=== PATIENT | male | born 1950 | race Caucasian/White ===

== ENCOUNTER 2019-02-21 19:58 | Inpatient (IN) | payer MEDICARE, MEDICAID ==
[~2019-02-21] VITALS: Ht 177.8 cm; Wt 89.4 kg
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
[2019-02-21 21:38] LABS: BASOPHILS # (AUTO) 0.1 /CMM (0.0-0.2); BASOPHILS % (AUTO) 0.4 % (0.0-2.0); EOSINOPHILS % (AUTO) 0.4 % (0.0-6.0); HEMATOCRIT 43 % (39-51); HEMOGLOBIN 14.5 g/dL (13.5-17.5); LYMPHOCYTES # (AUTO) 1.3 /CMM (0.8-4.8); LYMPHOCYTES % (AUTO) 9.1 % (20.0-44.0); MEAN CORPUSCULAR HGB CONC 34 g/dl (31.0-36.0); MEAN CORPUSCULAR VOLUME 86 fL (80-96); MONOCYTES # (AUTO) 0.9 /CMM (0.1-1.30); MONOCYTES % (AUTO) 6.4 % (2.0-12.0); NEUTROPHILS % (AUTO) 83.7 % (43.0-81.0); PLATELET COUNT (AUTO) 249 /CMM (150-450); RED BLOOD CELL COUNT(AUTO) 4.93 MIL/uL (4.5-6.0); WHITE BLOOD COUNT (AUTO) 14.4 K/uL (4.3-11.0)
[2019-02-21 21:46] LABS: CALCIUM, SERUM 9.2 mg/dL (8.5-10.1); CARBON DIOXIDE 22 mmol/L (21-32); CHLORIDE 108 mmol/L (98-107); CREATININE 1.3 mg/dL (0.6-1.3); GLUCOSE 151 mg/dL (74-106); POTASSIUM 3.3 mmol/L (3.5-5.1); SODIUM SERUM 143 mmol/L (136-145); UREA NITROGEN, BLOOD 17 mg/dL (7-18)
--- NOTE | 2019-02-21 21:50 | NUR ---
CALLED NURSING SUP FOR BLU BED.
[2019-02-21 21:52] LABS: ALANINE AMINOTRANSFERASE 26 U/L (12-78); ALKALINE PHOSPHATASE 120 U/L (46-116); ASPARTATE AMINOTRANSFERASE 26 U/L (15-37); BILIRUBIN,DIRECT 0.1 mg/dL (0.0-0.2); BILIRUBIN,TOTAL 0.5 mg/dL (0.2-1.0); LIPASE 159 U/L (73-393); TOTAL PROTEIN, SERUM 7.9 g/dL (6.4-8.2)
--- NOTE | 2019-02-21 21:54 | NUR ---
phleb sent by [employer] at bedside for blood draw
[2019-02-21] MEDS ORDERED: LEVETIRACETAM (500MG) 500 MG/5 ML VIAL IV ONE (21:59)
[2019-02-21] MEDS ORDERED: LEVETIRACETAM (500MG) 1,000 MG in IV NS 0.9% 100 ML IV SCH (22:00)
--- NOTE | 2019-02-21 22:15 | NUR ---
[employer] WARRANT IN PLACE FOR THIS PATIENT. [phone] FOR FOLLOW UP.
--- NOTE | 2019-02-21 22:30 | NUR ---
NURSING SUP GAVE 120-2.
--- NOTE | 2019-02-21 22:31 | NUR ---
CORRECTION 106
[2019-02-21] MEDS ORDERED: LORAZEPAM INJ 2 MG/ML VIAL IV PRN (23:30)
[2019-02-21] MEDS ORDERED: ACETAMINOPHEN 325 MG TABLET PO PRN (23:30)
[2019-02-21] MEDS ORDERED: MAGNESIUM HYDROXIDE 30 ML UDC PO PRN (23:30)
[2019-02-21] MEDS ORDERED: ONDANSETRON HCL/PF 4 MG/2 ML VIAL IVP PRN (23:30)
[2019-02-21] MEDS ORDERED: MAG HYDROX/AL HYDROX/SIMETH 30 ML UDC PO PRN (23:30)
[2019-02-21] MEDS ORDERED: Z GUARD REMEDY 2 OZ OINT TP PRN (23:30)
--- NOTE | 2019-02-21 23:51 | NUR ---
report given to sanjeev yao for ritchie, pt transported to 1st floor
[2019-02-22] VITALS: BP 150/99
[2019-02-22] MEDS: CEFTRIAXONE 1 G in IV D5W 50 ML IV SCH ×2
[2019-02-22] MEDS: IV NS 0.9% 1,000 ML IV PRN (01:00)
--- NOTE | 2019-02-22 01:58 | NUR ---
[address] SCAN VIA BED ON ACLS MONITOR. AAO X 4. NO CHANGES IN NEURO STATUS NOTED.
--- NOTE | 2019-02-22 02:08 | NUR ---
[address] SCAN.
[2019-02-22 04:00] VITALS: BP 155/94
[2019-02-22] MEDS ORDERED: CEFTRIAXONE 1 G VIAL ONE (04:34)
[2019-02-22 06:40] LABS: BASOPHILS % (AUTO) 0.3 % (0.0-2.0); EOSINOPHILS % (AUTO) 0.4 % (0.0-6.0); HEMATOCRIT 38 % (39-51); HEMOGLOBIN 12.9 g/dL (13.5-17.5); LYMPHOCYTES # (AUTO) 1.4 /CMM (0.8-4.8); LYMPHOCYTES % (AUTO) 16.8 % (20.0-44.0); MEAN CORPUSCULAR HGB CONC 34 g/dl (31.0-36.0); MEAN CORPUSCULAR VOLUME 85 fL (80-96); MONOCYTES # (AUTO) 0.9 /CMM (0.1-1.30); MONOCYTES % (AUTO) 10.2 % (2.0-12.0); NEUTROPHILS % (AUTO) 72.3 % (43.0-81.0); PLATELET COUNT (AUTO) 215 /CMM (150-450); RED BLOOD CELL COUNT(AUTO) 4.47 MIL/uL (4.5-6.0); WHITE BLOOD COUNT (AUTO) 8.4 K/uL (4.3-11.0)
[2019-02-22 06:43] LABS: CALCIUM, SERUM 8.6 mg/dL (8.5-10.1); POTASSIUM 3.7 mmol/L (3.5-5.1)
[2019-02-22 06:46] LABS: MAGNESIUM 2.1 mg/dL (1.8-2.4); PHOSPHORUS 2.4 mg/dL (2.5-4.9)
[2019-02-22 06:54] LABS: THYROID STIMULATING HORMONE 4.263 uIU/mL (0.358-3.74)
--- NOTE | 2019-02-22 07:52 | NUR ---
RN NOTES RECEIVED PATIENT FROM ER VIA STRETCHER ACCOMPANIED BY 2 STAFF IN NO APPARENT DISTRESS, BREATHING EVEN AND UNLABORED. ROOM AIR TOLERATING WELL. ALERT AND ORIENTED CZECH SPEAKING. VITAL SIGNS WNL. NO COMPLAINT OF PAIN OR DISCOMFORT. SKIN ASSESSMENT DONE. NEEDS ATTENDED. KEPT CLEAN AND DRY. ENDORSED TO NEXT SHIFT FOR CONTINUITY OF CARE.
[2019-02-22 08:00] VITALS: BP 183/63
[2019-02-22] MEDS ORDERED: K PHOS NEUTRAL 250 MG TABLET PO ONE (08:00)
--- NOTE | 2019-02-22 08:00 | NUR ---
TELE1/RN AM SHIFT INITIAL NOTES RECEIVED PT ASLEEP IN BED, EASILY AROUSED, PT A/OX 4 DENIES PAIN AT THIS TIME. NO ACUTE CHANGE OF CONDITION NOTED. ON ROOM AIR, RESPIRATIONS EVEN & UNLABORED, SATURATING @ 100%, LUNG SOUNDS CLEAR. ON TELE WITH SINUS RHYTHM, HR 91. WITH ON GOING IV INFUSION OF NS @ 50CC/HR, IV SITE PATENT WITH NO S/S OF INFECTION. PT IS COMFORTABLE, SCHEDULED AM MEDS TO BE GIVEN. CL WITHIN REACHED AND SAFETY MAINTAINED. ON GOING MONITORING.
[2019-02-22] MEDS ORDERED: ASPI-605 PO (08:20)
[2019-02-22] MEDS ORDERED: VALS320T16 PO (08:20)
[2019-02-22] MEDS: PANTOPRAZOLE 40 MG TABLET.DR PO SCH (09:00)
[2019-02-22] MEDS: THIAMINE HCL 100 MG TABLET PO SCH (09:00)
[2019-02-22] MEDS: FOLIC ACID 1 MG TABLET PO SCH (09:00)
[2019-02-22] MEDS: MULTIVITAMINS,THERAGRAN 1 UDTAB TABLET PO SCH (09:00)
[2019-02-22] MEDS: LEVETIRACETAM (500MG) 500 MG in IV NS 0.9% 100 ML IV SCH ×2 (09:01→20:53)
[2019-02-22] MEDS ORDERED: CLONIDINE HCL 0.1 MG TABLET PO PRN (10:00)
[2019-02-22] MEDS ORDERED: CLONIDINE HCL 0.1 MG TABLET PO ONE (11:00)
[2019-02-22 12:00] VITALS: BP 168/99
[2019-02-22 16:00] VITALS: BP 147/86
--- NOTE | 2019-02-22 16:00 | NUR ---
WAFER PRODUCTION LEAD WORKER NOTES RECEIVED PATIENT FROM [facility]. PATIENT IN BED NO SOB OR DISCOMFORT NOTED AT THIS TIME. CALL LIGHT WITHIN REACH BED AT THE LOWEST POSITION.
--- NOTE | 2019-02-22 16:13 | NUR ---
TELE1/HYPERION ANALYST OF CARE PT IN STABLE CONDITION. REPORT GIVEN TO NURSE REMY, PT ENDORSED TO CONTINUE CARE.
--- NOTE | 2019-02-22 19:00 | NUR ---
SECTION PLOTTER OPERATOR NOTES PATIENT IS A/OX 4 , ALL NEEDS ATTENDED. NO SOB OR DISCOMFORT AT THIS TIME. IV PATENT AND FLUSHED WITH NS, BED AT THE LOWEST POSITION AND LOCKED, CALL LIGHT WITHIN REACH. ENDORSED TO QUALITY CONTROL SYSTEMS MANAGER NURSE FOR MICHELLE.
--- NOTE | 2019-02-22 19:45 | NUR ---
RN NOTES, RECEIVED PATIENT IN BED , AWAKE A/OX 4, ABLE TO VERBALIZED NEEDS AND CONCERNS, C/O GENERALIZED PAIN AT THIS TIME, WILL ADMINISTER PAIN MEDICATION ORDERED, BREATHING EVEN AND UNLABORED, ON ROOM AIR, NO SOB/ACUTE DISTRESS NOTED, SINUS RHYTHM ON TELE WITH HR 80S AT THIS TIME, IVF NS @ 50CC/HR INFUSING WELL AND PATIENT TOLERATED WELL, NO S/S OF INFILTRATION OR ABNORMALITY AT SITE, BED LOCKED AND LOW POSITION, CALL LIGHT WITHIN REACHED, WILL CONTINUE TO MONITOR CLOSELY.
[2019-02-22] MEDS: HYDROCODONE/APAP 5/325MG 1 EACH TABLET PO PRN (19:46)
[2019-02-22 20:00] VITALS: BP_SYST 147; BP_SYST 157; BP_DIAS 82; BP_DIAS 86
[2019-02-23] VITALS: BP 136/82
[2019-02-23] MEDS: CEFTRIAXONE 1 G in IV D5W 50 ML IV SCH (00:01)
[2019-02-23] MEDS: HYDROCODONE/APAP 5/325MG 1 EACH TABLET PO PRN (00:07)
[2019-02-23] MEDS: IV NS 0.9% 1,000 ML IV PRN (03:54)
[2019-02-23 04:00] VITALS: BP_SYST 139; BP_SYST 147; BP_DIAS 85; BP_DIAS 88
[2019-02-23 06:14] LABS: BASOPHILS % (AUTO) 0.3 % (0.0-2.0); EOSINOPHILS % (AUTO) 2.2 % (0.0-6.0); HEMATOCRIT 36 % (39-51); HEMOGLOBIN 12.5 g/dL (13.5-17.5); LYMPHOCYTES # (AUTO) 1.5 /CMM (0.8-4.8); LYMPHOCYTES % (AUTO) 25.6 % (20.0-44.0); MEAN CORPUSCULAR HGB CONC 34 g/dl (31.0-36.0); MEAN CORPUSCULAR VOLUME 86 fL (80-96); MONOCYTES # (AUTO) 0.7 /CMM (0.1-1.30); MONOCYTES % (AUTO) 11.4 % (2.0-12.0); NEUTROPHILS # (AUTO) 3.5 /CMM (1.8-8.9); NEUTROPHILS % (AUTO) 60.5 % (43.0-81.0); PLATELET COUNT (AUTO) 192 /CMM (150-450); RED BLOOD CELL COUNT(AUTO) 4.25 MIL/uL (4.5-6.0); WHITE BLOOD COUNT (AUTO) 5.8 K/uL (4.3-11.0)
[2019-02-23 06:36] LABS: CALCIUM, SERUM 8.3 mg/dL (8.5-10.1); PHOSPHORUS 3.2 mg/dL (2.5-4.9); POTASSIUM 3.8 mmol/L (3.5-5.1)
--- NOTE | 2019-02-23 06:38 | NUR ---
RN NOTES, PATIENT AWAKE AT THIS TIME, BREATHING EVEN AND UNLABORED, ON ROOM AIR, NO SOB/ACUTE DISTRESS NOTED, CONTINUE SINUS RHYTHM ON TELE WITH HR 60-70S AT THIS TIME, IVF NS @ 50CC/HR INFUSING WELL AND PATIENT TOLERATED WELL, NO S/S OF INFILTRATION OR ABNORMALITY AT SITE, BED LOCKED AND LOW POSITION, NO SIGNIFICANT CHANGE IN CONDITION, OR NEUROLOGICAL ISSUE NOTED, CALL LIGHT WITHIN REACHED, WILL ENDORSE CONTINUITY OF CARE TO ONCOMING NURSE.
--- NOTE | 2019-02-23 07:34 | NUR ---
SLACK LINE YARDER NOTE PATIENT RESTING COMFORTABLY IN BED,NO SOB NOTED , ON RA , ON TELE MONITOR HR 72 SR , LT AC HL INTACT , ON IVF ORDERED, BED IN LOWEST AND LOCKED POSITION , WILL CONT TO MONITOR
[2019-02-23 08:00] VITALS: BP 148/84
[2019-02-23] MEDS: PANTOPRAZOLE 40 MG TABLET.DR PO SCH (08:10)
[2019-02-23] MEDS: FOLIC ACID 1 MG TABLET PO SCH (08:10)
[2019-02-23] MEDS: THIAMINE HCL 100 MG TABLET PO SCH (08:11)
[2019-02-23] MEDS: MULTIVITAMINS,THERAGRAN 1 UDTAB TABLET PO SCH (08:11)
[2019-02-23] MEDS: LEVETIRACETAM (500MG) 500 MG in IV NS 0.9% 100 ML IV SCH (09:43)
--- NOTE | 2019-02-23 10:17 | NUR ---
[employer] NOTIFIED PATIENT BEING DISCHARGE TODAY AWAITS CALL BACK.
--- NOTE | 2019-02-23 10:26 | NUR ---
JA BASURTO MADE AWARE OF SITUATION.
--- NOTE | 2019-02-23 10:53 | NUR ---
MS RN NOTE OK TO D\C BY JORGE REYES SOLE LEVELER MACHINE ,AWAITING RETURN CALL FROM [facility] AND [facility] , CHARGE NURSE NOTIFIED PER PT OK TO ORDER WALKER FOR SAFETY
--- NOTE | 2019-02-23 11:13 | NUR ---
SPOKE AGAIN WITH [employer] OFFICE [phone] C/O CARLOS ENRIQUE AND VERBALIZED WILL CALL BACK IN 20 MINUTES REGARDING DECISION IF PATIENT OK TO DISCHARGE HOME OR POLICE CUSTODY?WILL CONTINUE TO FOLLOWUP.
--- NOTE | 2019-02-23 11:33 | NUR ---
SPOKE WITH OFFICER MILLY FROM [employer] PATIENT OK TO RELEASED HOME.CM MADE AWARE .
[2019-02-23] MEDS ORDERED: THIA100T88 PO (11:39)
[2019-02-23] MEDS ORDERED: MULT-24 PO (11:39)
[2019-02-23] MEDS ORDERED: CLON0.1T14 PO (11:39)
--- NOTE | 2019-02-23 13:11 | NUR ---
MS RN NOTE D\C INSTRUCTION GIVEN ,BELONGING SIGNED , TELE MONITOR REMOVED , D\C INSTRUCTION GIVEN AND EXPLAINED HOW TO TAKE HOME MEDS AND NEW PX AND POSSIBLE SIDE EFFECTS , CALLED [facility] INSTRUCTED TO SOFTWARE DEPLOYMENT ENGINEER MEDS FROM PHARMACY, SPOKE WITH JOSE A PHONE NUMBER AND ADDRESS GIVEN ALSO GIVEN INSTRUCTION TO F\U WITH [facility] FOR [facility], HL REMOVED , NO BLEEDING NOTED , TAKEN TO LOBBY ON W\C WITH STABLE , REFUSED TO TAKE WALKER ,STATED AM OK, EXPLAINED TO TAKE WITH HIM STILL REFUSING ,BUS CARD GIVEN TO PATIENT WILL USE BUS TO GO HOME
[2019-02-23] MEDS ORDERED: LEVETIRACETAM (250 MG) 250 MG TABLET PO SCH (21:00)
== END 2019-02-23 13:00 | disposition home or self-care (01) | DRG 896 ==
LOC: ER 20:00 → TELE-TD 22:33 → TELE1 02-22 10:20 → MEDSG1 02-23 09:52
PROVIDERS: ADMIT Registered Nurse; ATTEND Nurse Practitioner Acute Care
DX: F10.129 Alcohol abuse with intoxication, unspecified (principal); S06.360A Traumatic hemorrhage of cerebrum, unspecified, without loss of consciousness, initial encounter; S02.2XXA Fracture of nasal bones, initial encounter for closed fracture; S50.311A Abrasion of right elbow, initial encounter; V89.2XXA Person injured in unspecified motor-vehicle accident, traffic, initial encounter; Y92.410 Unspecified street and highway as the place of occurrence of the external cause; I10 Essential (primary) hypertension; Y90.6 Blood alcohol level of 120-199 mg/100 ml; E66.9 Obesity, unspecified; E83.39 Other disorders of phosphorus metabolism; Y09 Assault by unspecified means; Z68.28 Body mass index [BMI] 28.0-28.9, adult; M25.512 Pain in left shoulder; M50.30 Other cervical disc degeneration, unspecified cervical region; R40.2142 Coma scale, eyes open, spontaneous, at arrival to emergency department; R40.2362 Coma scale, best motor response, obeys commands, at arrival to emergency department; R40.2252 Coma scale, best verbal response, oriented, at arrival to emergency department
CPT/HCPCS: 36415; 70450-TC; 70486-TC; 72125-TC; 73502; 80048-TC; 80061-TC; 80076-TC; 82140-TC; 83690-TC; 83735-TC; 84100-TC; 84439-TC; 84443-TC; 84484-TC; 85025-TC; 85730-TC; 87081-TC; 92611-TC; 97116-TC; 97530-TC; G0378; G0480; J0696; J1953; J7030; J7050; J7060

== ENCOUNTER 2020-07-16 16:46 | Inpatient (IN) | payer MEDICARE, OTHER ==
[~2020-07-16] VITALS: Ht 175.3 cm; Wt 81.6 kg
[~2020-07-16 16:46] MED LIST: ASPI-605 PO; CLON0.1T14 PO; MULT-24 PO; THIA100T88 PO; VALS320T16 PO
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
[2020-07-16] MEDS ORDERED: IV NS 0.9% 1,000 ML BAG IV ONE (17:30)
[2020-07-16] MEDS ORDERED: ONDANSETRON HCL/PF 4 MG/2 ML VIAL IVP ONE (17:30)
[2020-07-16 17:36] LABS: BASOPHILS % (AUTO) 0.2 % (0.0-2.0); EOSINOPHILS % (AUTO) 0.2 % (0.0-6.0); HEMATOCRIT 42 % (39-51); HEMOGLOBIN 14.2 g/dL (13.5-17.5); LYMPHOCYTES # (AUTO) 1.1 /CMM (0.8-4.8); MEAN CORPUSCULAR HGB CONC 34 g/dl (31.0-36.0); MEAN CORPUSCULAR VOLUME 90 fL (80-96); MONOCYTES # (AUTO) 0.7 /CMM (0.1-1.30); MONOCYTES % (AUTO) 7.2 % (2.0-12.0); NEUTROPHILS # (AUTO) 8.4 /CMM (1.8-8.9); NEUTROPHILS % (AUTO) 81.4 % (43.0-81.0); PLATELET COUNT (AUTO) 235 /CMM (150-450); RED BLOOD CELL COUNT(AUTO) 4.74 MIL/uL (4.5-6.0); WHITE BLOOD COUNT (AUTO) 10.4 K/uL (4.3-11.0)
--- NOTE | 2020-07-16 17:39 | NUR ---
MOVE SHEET SUBMITTED AND CALLED FOR TELE BED.
[2020-07-16] MEDS ORDERED: ONDANSETRON HCL/PF 4 MG/2 ML VIAL ONE (17:42)
[2020-07-16 17:50] LABS: CALCIUM, SERUM 9.1 mg/dL (8.5-10.1); CARBON DIOXIDE 21 mmol/L (21-32); CHLORIDE 107 mmol/L (98-107); CREATININE 1.6 mg/dL (0.6-1.3); GLUCOSE 94 mg/dL (74-106); POTASSIUM 4.2 mmol/L (3.5-5.1); SODIUM SERUM 139 mmol/L (136-145); UREA NITROGEN, BLOOD 35 mg/dL (7-18)
[2020-07-16 17:56] LABS: ALANINE AMINOTRANSFERASE 27 U/L (12-78); ALKALINE PHOSPHATASE 105 U/L (46-116); ASPARTATE AMINOTRANSFERASE 29 U/L (15-37); BILIRUBIN,DIRECT 0.2 mg/dL (0.0-0.2); BILIRUBIN,TOTAL 1.1 mg/dL (0.2-1.0); LIPASE 115 U/L (73-393); TOTAL PROTEIN, SERUM 8.1 g/dL (6.4-8.2)
[2020-07-16] MEDS ORDERED: IBUP-1955 PO (18:19)
[2020-07-16] MEDS ORDERED: TAMS-12 PO (18:19)
--- NOTE | 2020-07-16 18:23 | NUR ---
PAGED [facility], DR. RENÉ Han ON-CALL. AWAITING FOR CALL BACK. PRIMARY NURSE AWARE.
--- NOTE | 2020-07-16 19:10 | NUR ---
EPIC CALLED. WILL PAGE ONCOMING ORE MINER BLASTING PROVIDER, ORA PETER
--- NOTE | 2020-07-16 19:15 | NUR ---
PT ASLEEP AND NOT IN ANY APPARENT DISTRESS. EASILY AROUSABLE BY VERBAL STIMULI. PT CONNECTED TO THE MONITOR AND POX. WILL CONTINUE TO MONITOR PT
[2020-07-16] MEDS ORDERED: ZOLPIDEM TARTRATE 5 MG TABLET PO PRN (19:30)
[2020-07-16] MEDS ORDERED: IV NS 0.9% 1,000 ML IV PRN (19:30)
[2020-07-16] MEDS ORDERED: ONDANSETRON HCL/PF 4 MG/2 ML VIAL IVP PRN (19:30)
[2020-07-16] MEDS ORDERED: HYDROCODONE/APAP 5/325MG TABLET PO PRN (19:30)
[2020-07-16] MEDS ORDERED: MAG HYDROX/AL HYDROX/SIMETH 30 ML UDC PO PRN (19:30)
[2020-07-16] MEDS ORDERED: ACETAMINOPHEN 325 MG TABLET PO PRN (19:30)
[2020-07-16] MEDS ORDERED: MAGNESIUM HYDROXIDE 30 ML UDC PO PRN (19:30)
[2020-07-16] MEDS ORDERED: Z GUARD REMEDY 2 OZ OINT TP PRN (19:30)
--- NOTE | 2020-07-16 19:48 | NUR ---
CALL FROM LAB. RAPID COVID NEGATIVE.
--- NOTE | 2020-07-16 19:52 | NUR ---
TELE [phone]
--- NOTE | 2020-07-16 20:00 | NUR ---
REPORT GIVEN TO AMY MARTELL FOR MICHELLE
--- NOTE | 2020-07-16 20:30 | NUR ---
Patient does not wish to proceed with medical care recommended by Dr. Duffy. Patient given information related to possible complications, up to and including , which could occur as a result of leaving the hospital at this time. Patient verbalizes understanding of risks involved due to leaving against medical advice. Patient has signed AMA form. Pt ambulatory w/ steady gait. Pt dc w/ family
--- NOTE | 2020-07-16 20:35 | NUR ---
Pt wanted to leave. aware
[2020-07-16 20:44] VITALS: BP 120/72
[2020-07-17] MEDS ORDERED: VALSARTAN 80 MG TABLET PO SCH (09:00)
[2020-07-17] MEDS ORDERED: TAMSULOSIN 0.4 MG CAP.SR.24H PO SCH (18:00)
== END 2020-07-16 23:00 | disposition left against medical advice (07) | DRG 312 ==
LOC: ER 16:59 → TELE 19:51
PROVIDERS: ADMIT Nurse Practitioner Acute Care; ATTEND Nurse Practitioner Acute Care
DX: R55 Syncope and collapse (principal); I10 Essential (primary) hypertension; R11.10 Vomiting, unspecified; R19.7 Diarrhea, unspecified; E86.0 Dehydration; S00.03XA Contusion of scalp, initial encounter; X58.XXXA Exposure to other specified factors, initial encounter; Y93.9 Activity, unspecified; K57.30 Diverticulosis of large intestine without perforation or abscess without bleeding; Y92.009 Unspecified place in unspecified non-institutional (private) residence as the place of occurrence of the external cause; Z20.822 Contact with and (suspected) exposure to COVID-19
CPT/HCPCS: 36415; 70450-TC; 71045-TC; 80048-TC; 80076-TC; 83690-TC; 84484-TC; 85025-TC; C9803; G0378; J2405; J7030

== ENCOUNTER 2020-07-24 10:39 | Emergency (ER) | payer MEDICARE, OTHER ==
[~2020-07-24] VITALS: Ht 175.3 cm; Wt 81.6 kg
[~2020-07-24 10:39] MED LIST changes: -ASPI-605 PO; -CLON0.1T14 PO; +IBUP-1955 PO; -MULT-24 PO; +TAMS-12 PO; -THIA100T88 PO
--- NOTE | 2020-07-24 10:52 | NUR ---
DR. REMY AT BEDSIDE FOR EVAL. PATIENT PROVIDED A URINE SAMPLE AND SENT TO LAB.
[2020-07-24] MEDS ORDERED: LIDOCAINE 2% JEL UROJET 10 ML MM ONE (10:55)
[2020-07-24 10:56] LABS: BILIRUBIN,URINE Negative (NEGATIVE); COLOR,URINE YELLOW (YELLOW); LEUKOCYTE ESTERASE ,URINE Small (NEGATIVE); NITRITE, URINE Negative (NEGATIVE); PH,URINE 5.5 (5.0-8.0); PROTEIN,URINE Negative (NEGATIVE); UGLUCOSE Negative (NEGATIVE); UROBILINOGEN,URINE 0.2 EU/dL (0.2)
[2020-07-24 11:01] LABS: BACTERIA,URINE Few /HPF (None Seen); SQUAMOUS EPITHELIAL CELL,UR 0-2 /HPF (None Seen)
--- NOTE | 2020-07-24 11:06 | NUR ---
HEMPHILL CATHETER FR16 INSERTED VIA STERILE TECHNIQUE, URINE OUPUT 700CC AT THIS TIME. DR. REMY MADE AWARE
--- NOTE | 2020-07-24 11:07 | NUR ---
WOUND CARE COORDINATOR AT BEDSIDE FOR BLOOD DRAW.
[2020-07-24 11:15] LABS: BASOPHILS % (AUTO) 0.4 % (0.0-2.0); EOSINOPHILS % (AUTO) 0.8 % (0.0-6.0); HEMATOCRIT 41 % (39-51); HEMOGLOBIN 13.8 g/dL (13.5-17.5); LYMPHOCYTES # (AUTO) 1.4 /CMM (0.8-4.8); LYMPHOCYTES % (AUTO) 16.9 % (20.0-44.0); MEAN CORPUSCULAR HGB CONC 34 g/dl (31.0-36.0); MEAN CORPUSCULAR VOLUME 88 fL (80-96); MONOCYTES # (AUTO) 0.7 /CMM (0.1-1.30); MONOCYTES % (AUTO) 8.7 % (2.0-12.0); NEUTROPHILS # (AUTO) 5.9 /CMM (1.8-8.9); NEUTROPHILS % (AUTO) 73.2 % (43.0-81.0); PLATELET COUNT (AUTO) 247 /CMM (150-450); RED BLOOD CELL COUNT(AUTO) 4.59 MIL/uL (4.5-6.0)
[2020-07-24] MEDS ORDERED: CEFTRIAXONE 1GM BAG (ER ONLY) 50 ML IV ONE (11:19)
[2020-07-24 11:21] LABS: CALCIUM, SERUM 8.4 mg/dL (8.5-10.1); POTASSIUM 4.2 mmol/L (3.5-5.1)
[2020-07-24] MEDS ORDERED: CEFTRIAXONE 1GM BAG (ER ONLY) 1 GM/50 ML PIGGYBACK IV ONE (11:30)
[2020-07-24] MEDS ORDERED: CIPR-262 PO (11:42)
[2020-07-24] MEDS ORDERED: DOCU-141 PO (11:42)
[2020-07-24] MEDS ORDERED: TAMS-12 PO (11:42)
--- NOTE | 2020-07-24 11:55 | NUR ---
ANOTHER 100CC URINE TAKEN OUT. A TOTAL OF 800CC URINE OUTPUT DURING THIS VISIT. HEMPHILL CATHETER REMOVED. IV removed. Catheter intact and site benign. Pressure and 4x4 applied to site. No bleeding noted.Patient discharged to home in stable condition. Written and verbal after care instructions given. Patient verbalizes understanding of instruction.
[2020-07-24 11:57] VITALS: BP 164/98
== END 2020-07-24 11:57 | disposition home or self-care (01) ==
LOC: ER 10:47
DX: R33.9 Retention of urine, unspecified (principal); I10 Essential (primary) hypertension; Z79.899 Other long term (current) drug therapy
CPT/HCPCS: 36415; 76857; 80048; 81001; 85025; 87086; 96365; 99284; J0696; J3490